=== PATIENT | male | born 1950 | race Two or more races ===

== ENCOUNTER 2020-04-19 14:34 | Outpatient (CLI) | payer MEDICARE ==
[2020-04-19 16:52] LABS: BASOPHILS % (AUTO) 0.3 % (0.0-2.0); EOSINOPHILS % (AUTO) 1.4 % (0.0-6.0); HEMATOCRIT 46 % (39-51); HEMOGLOBIN 15.3 g/dL (13.5-17.5); LYMPHOCYTES # (AUTO) 2.1 /CMM (0.8-4.8); LYMPHOCYTES % (AUTO) 27.1 % (20.0-44.0); MEAN CORPUSCULAR HGB CONC 34 g/dl (31.0-36.0); MEAN CORPUSCULAR VOLUME 89 fL (80-96); MONOCYTES # (AUTO) 0.8 /CMM (0.1-1.30); MONOCYTES % (AUTO) 10.2 % (2.0-12.0); NEUTROPHILS # (AUTO) 4.6 /CMM (1.8-8.9); WHITE BLOOD COUNT (AUTO) 7.6 K/uL (4.3-11.0)
[2020-04-19 17:15] LABS: C-REACTIVE PROTEIN 0.3 mg/dL (0.0-0.9); PROSTATE SPECIFIC ANTIGEN SCR 0.97 ng/mL (0.00-4.00)
[2020-04-19 17:40] LABS: PLATELET COUNT (AUTO) 256 /CMM (150-450)
[2020-04-19 17:47] LABS: ALBUMIN 3.9 g/dL (3.4-5.0); BILIRUBIN,TOTAL 0.9 mg/dL (0.2-1.0); CALCIUM, SERUM 9.3 mg/dL (8.5-10.1); CREATININE 1.1 mg/dL (0.6-1.3); POTASSIUM 4.1 mmol/L (3.5-5.1); TOTAL PROTEIN, SERUM 7.3 g/dL (6.4-8.2)
== END 2020-04-19 23:59 | disposition home or self-care (01) ==
LOC: MSC 14:34
PROVIDERS: ATTEND Internal Medicine
DX: Z01.818 Encounter for other preprocedural examination (principal); H40.9 Unspecified glaucoma; K21.9 Gastro-esophageal reflux disease without esophagitis; N40.0 Benign prostatic hyperplasia without lower urinary tract symptoms; E78.1 Pure hyperglyceridemia; M25.531 Pain in right wrist
CPT/HCPCS: 36415; 80053; 80061; 84153; 85025; 85652; 86140; G0463